=== PATIENT | female | born 1935 | race Caucasian/White ===

== ENCOUNTER 2021-08-23 23:23 | Inpatient (IN) | payer MEDICARE, MEDICAID ==
[~2021-08-23] VITALS: Ht 162.6 cm; Wt 61.7 kg
[~2021-08-23 23:23] MED LIST: FELO2.5T25 PO; LEVOTHYROXINE PO; LOSA50TA41 PO
[2021-08-23] MEDS ORDERED: LABETALOL HCL VIAL 20 MG/4 ML VIAL IV ONE (23:45)
[2021-08-24 00:19] LABS: BASOPHILS % 0.3 % (0.0-2.0); EOSINOPHILS % 0.7 % (0.0-5.0); HEMOGLOBIN. 14.4 g/dL (12.0-16.0); LYMPHOCYTES % 13.1 % (20.0-50.0); MEAN CORPUSCULAR HEMOGLOBIN 30.3 pg (28.0-32.0); MEAN CORPUSCULAR VOLUME 90.1 fL (81.0-99.0); MEAN PLATELET VOLUME 8.5 fl (7.4-10.4); MONOCYTES % 6.7 % (2.0-8.0); NEUTROPHILS % 79.2 % (40.0-76.0); PLATELET 251 x1000/uL (130-400); RED BLOOD CELL COUNT 4.77 mill/uL (4.2-5.4); RED CELL DISTRIBUTION WIDTH 12.8 % (11.6-14.6)
[2021-08-24 00:20] LABS: CHLORIDE 84 mEq/L (98-107)
[2021-08-24 00:37] LABS: ETHANOL BLOOD < 10 mg/dL
[2021-08-24 06:48] LABS: CLARITY URINE CLEAR (CLEAR); COLOR URINE YELLOW (YELLOW); KETONES URINE TRACE (NEGATIVE); LEUKOCYTE ESTERASE URINE TRACE (NEGATIVE); NITRITE URINE POSITIVE (NEGATIVE); OCCULT BLOOD URINE TRACE (NEGATIVE); PH URINE 7.5 (4.5-8.0); PROTEIN URINE NEGATIVE (NEGATIVE); SPECIFIC GRAVITY URINE 1.008 (1.005-1.030)
[2021-08-24] MEDS ORDERED: IPRATROPIUM/ALBUTEROL 0.5-3(2.5)MG/3ML NEB NEB PRN (07:00)
[2021-08-24] MEDS ORDERED: GUAIFENESIN 200MG/10ML SUGAR FREE UDC PO PRN (07:00)
[2021-08-24] MEDS ORDERED: MAGNESIUM/ALUMINUM HYDROXIDE/SIMETHICONE 30ML UDC PO PRN (07:00)
[2021-08-24] MEDS ORDERED: NITROGLYCERIN 0.4MG TABLET SL SL PRN (07:00)
[2021-08-24] MEDS ORDERED: CLONIDINE 0.1MG TABLET PO PRN (07:00)
[2021-08-24] MEDS ORDERED: ACETAMINOPHEN 325MG TABLET PO PRN ×2 (07:00)
[2021-08-24] MEDS ORDERED: KETOROLAC 15MG/ML VIAL IV PRN (07:00)
[2021-08-24] MEDS ORDERED: DOCUSATE SODIUM 100MG CAPSULE PO PRN (07:00)
[2021-08-24] MEDS: SODIUM CHLORIDE 0.9% 1,000 ML IV SCH (07:00)
[2021-08-24] MEDS ORDERED: ONDANSETRON HCL 4MG/2ML INJ IV PRN (07:00)
[2021-08-24] MEDS ORDERED: LEVOFLOXACIN 500MG PREMIX 100 ML IV NR (08:30)
[2021-08-24 09:01] LABS: ETHANOL BLOOD < 10 mg/dL; HDL CHOLESTEROL 72 mg/dL (40-59); LDL CHOLESTEROL 76 mg/dL (5-100); T4 FREE 1.21 ng/dL (0.76-1.46); TOTAL IRON BINDING CAPACITY 499 ug/dL (250-450)
[2021-08-24 09:26] LABS: FOLIC ACID (FOLATE) SERUM >20 ng/mL ng/mL (>5.38); VITAMIN B12 SERUM 130 pg/mL (211-911)
[2021-08-24] MEDS: ASPIRIN 325MG EC TABLET PO SCH (09:52)
[2021-08-24] MEDS: FAMOTIDINE 20MG TABLET PO SCH (09:52)
[2021-08-24] MEDS: ASCORBIC ACID 500 MG TABLET PO SCH ×2 (09:52→21:20)
[2021-08-24] MEDS: ENOXAPARIN 40MG/0.4ML SYR SUBCUT SCH (09:52)
[2021-08-24 11:51] VITALS: BP 166/86
[2021-08-24 12:00] VITALS: BP 166/86
[2021-08-24 12:25] LABS: SODIUM URINE RANDOM 58 mEq/L
[2021-08-24 12:33] LABS: *AMPHETAMINES SCREEN URINE NEGATIVE (NEGATIVE); *BARBITURATES SCREEN URINE NEGATIVE (NEGATIVE); *BENZODIAZEPINES SCREEN URINE NEGATIVE (NEGATIVE); *COCAINE SCREEN URINE NEGATIVE (NEGATIVE); CANNABINOID URINE SCREEN NEGATIVE (NEGATIVE); METHADONE URINE SCREEN NEGATIVE (NEGATIVE); OPIATES URINE SCREEN NEGATIVE (NEGATIVE); PHENCYCLIDINE URINE SCREEN NEGATIVE (NEGATIVE)
[2021-08-24] MEDS: ZINC SULFATE 220 MG ( 50 ) CAPSULE PO SCH (13:26)
[2021-08-24] MEDS: AMLODIPINE 10MG TABLET PO SCH (13:26)
[2021-08-24 16:00] VITALS: BP 139/88
[2021-08-24] MEDS: LEVOTHYROXINE SODIUM 88MCG TABLET PO SCH (17:36)
[2021-08-24 18:45] LABS: CREATINE KINASE MB FRACTION 2.3 ng/mL (0.5-3.6)
[2021-08-24 20:00] VITALS: BP 117/60
[2021-08-24] MEDS ORDERED: ZOLPIDEM TARTRATE 5MG TABLET PO PRN (21:00)
[2021-08-24 23:46] LABS: CREATINE KINASE MB FRACTION 1.7 ng/mL (0.5-3.6)
[2021-08-25] VITALS: BP 118/68
[2021-08-25 04:00] VITALS: BP 135/68
[2021-08-25] MEDS: SODIUM CHLORIDE 0.9% 1,000 ML IV SCH ×2 (05:59→23:18)
[2021-08-25 06:59] LABS: BASOPHILS % 0.4 % (0.0-2.0); EOSINOPHILS % 1.1 % (0.0-5.0); HEMATOCRIT. 39.3 % (36.0-48.0); HEMOGLOBIN. 13.7 g/dL (12.0-16.0); LYMPHOCYTES % 24.1 % (20.0-50.0); MEAN CORPUSCULAR HEMOGLOBIN 31.3 pg (28.0-32.0); MEAN CORPUSCULAR VOLUME 89.9 fL (81.0-99.0); MEAN PLATELET VOLUME 9.1 fl (7.4-10.4); MONOCYTES % 10.1 % (2.0-8.0); NEUTROPHILS % 64.3 % (40.0-76.0); PLATELET 218 x1000/uL (130-400); RED BLOOD CELL COUNT 4.37 mill/uL (4.2-5.4); RED CELL DISTRIBUTION WIDTH 12.8 % (11.6-14.6)
[2021-08-25 08:00] VITALS: BP 116/60
[2021-08-25] MEDS: FAMOTIDINE 20MG TABLET PO SCH (08:46)
[2021-08-25] MEDS: ASPIRIN 325MG EC TABLET PO SCH (08:46)
[2021-08-25] MEDS: ENOXAPARIN 40MG/0.4ML SYR SUBCUT SCH (08:46)
[2021-08-25] MEDS: ZINC SULFATE 220 MG ( 50 ) CAPSULE PO SCH (08:47)
[2021-08-25] MEDS: ASCORBIC ACID 500 MG TABLET PO SCH ×2 (08:47→20:41)
[2021-08-25] MEDS: AMLODIPINE 10MG TABLET PO SCH (08:47)
[2021-08-25] MEDS: LEVOTHYROXINE SODIUM 88MCG TABLET PO SCH (08:48)
[2021-08-25] MEDS ORDERED: LEVOFLOXACIN 250MG PREMIX 50 ML IV SCH (09:00)
[2021-08-25 10:28] LABS: CHLORIDE 95 mEq/L (98-107)
[2021-08-25] MEDS: LEVOFLOXACIN 250MG PREMIX 50 ML IV SCH (11:30)
[2021-08-25 12:00] VITALS: BP 118/62
[2021-08-25 16:00] VITALS: BP 110/61
[2021-08-25 20:00] VITALS: BP 124/64
[2021-08-26] VITALS: BP 137/69
[2021-08-26 04:00] VITALS: BP 135/76
[2021-08-26] MEDS: LEVOTHYROXINE SODIUM 88MCG TABLET PO SCH (06:19)
[2021-08-26 06:38] LABS: CHLORIDE 102 mEq/L (98-107)
[2021-08-26 06:44] LABS: PHOSPHORUS 2.5 mg/dL (2.5-4.9)
[2021-08-26 06:47] LABS: BASOPHILS % 0.8 % (0.0-2.0); EOSINOPHILS % 2.9 % (0.0-5.0); HEMATOCRIT. 40.7 % (36.0-48.0); HEMOGLOBIN. 13.8 g/dL (12.0-16.0); LYMPHOCYTES % 19.1 % (20.0-50.0); MEAN CORPUSCULAR VOLUME 91.3 fL (81.0-99.0); MEAN PLATELET VOLUME 9.7 fl (7.4-10.4); MONOCYTES % 9.1 % (2.0-8.0); NEUTROPHILS % 68.1 % (40.0-76.0); PLATELET 209 x1000/uL (130-400); RED BLOOD CELL COUNT 4.46 mill/uL (4.2-5.4)
[2021-08-26 08:00] VITALS: BP 154/84
[2021-08-26] MEDS: ASCORBIC ACID 500 MG TABLET PO SCH ×2 (09:17→22:39)
[2021-08-26] MEDS: FAMOTIDINE 20MG TABLET PO SCH (09:17)
[2021-08-26] MEDS: ENOXAPARIN 40MG/0.4ML SYR SUBCUT SCH (09:17)
[2021-08-26] MEDS: LEVOFLOXACIN 250MG PREMIX 50 ML IV SCH (09:17)
[2021-08-26] MEDS: ASPIRIN 325MG EC TABLET PO SCH (09:18)
[2021-08-26] MEDS: ZINC SULFATE 220 MG ( 50 ) CAPSULE PO SCH (09:18)
[2021-08-26] MEDS: AMLODIPINE 10MG TABLET PO SCH (09:18)
[2021-08-26 12:00] VITALS: BP 135/67
[2021-08-26 16:00] VITALS: BP 128/79
[2021-08-26] MEDS: SODIUM CHLORIDE 0.9% 1,000 ML IV SCH (16:47)
[2021-08-26] MEDS: CYANOCOBALAMIN 1000MCG/ML VIAL IM SCH (16:47)
[2021-08-26 20:00] VITALS: BP 130/74
[2021-08-27] VITALS: BP 149/78
[2021-08-27 04:00] VITALS: BP 149/67
[2021-08-27 08:00] VITALS: BP 129/78
[2021-08-27] MEDS: CYANOCOBALAMIN 1000MCG/ML VIAL IM SCH (09:45)
[2021-08-27] MEDS: LEVOTHYROXINE SODIUM 88MCG TABLET PO SCH (09:45)
[2021-08-27] MEDS: ENOXAPARIN 40MG/0.4ML SYR SUBCUT SCH (09:45)
[2021-08-27] MEDS: FAMOTIDINE 20MG TABLET PO SCH (09:46)
[2021-08-27] MEDS: AMLODIPINE 10MG TABLET PO SCH (09:46)
[2021-08-27] MEDS: ASCORBIC ACID 500 MG TABLET PO SCH (09:46)
[2021-08-27] MEDS: ZINC SULFATE 220 MG ( 50 ) CAPSULE PO SCH (09:46)
[2021-08-27] MEDS: ASPIRIN 325MG EC TABLET PO SCH (09:46)
[2021-08-27] MEDS ORDERED: LEVOFLOXACIN 250MG TABLET PO SCH (11:00)
[2021-08-27] MEDS ORDERED: LEVO500T90 MT (11:04)
[2021-08-27] MEDS ORDERED: VIT1TABL5 MT (11:04)
[2021-08-27 11:32] VITALS: BP 129/78
[2021-08-27 12:00] VITALS: BP 135/73
== END 2021-08-27 17:00 | disposition home or self-care (01) | DRG 52 ==
LOC: ER 23:23 → 7WST 08-24 03:53 → SUPCPDRO 08-24 06:57 → ENRESERV 08-24 09:45 → 7WST 08-24 18:11
PROVIDERS: ADMIT Internal Medicine; ATTEND Internal Medicine
DX: G92.8 Other toxic encephalopathy (principal); E83.51 Hypocalcemia; E87.8 Other disorders of electrolyte and fluid balance, not elsewhere classified; I11.9 Hypertensive heart disease without heart failure; E87.1 Hypo-osmolality and hyponatremia; N39.0 Urinary tract infection, site not specified; E03.9 Hypothyroidism, unspecified; E11.9 Type 2 diabetes mellitus without complications; B96.20 Unspecified Escherichia coli [E. coli] as the cause of diseases classified elsewhere; I16.1 Hypertensive emergency; I25.10 Atherosclerotic heart disease of native coronary artery without angina pectoris; E53.8 Deficiency of other specified B group vitamins; E05.90 Thyrotoxicosis, unspecified without thyrotoxic crisis or storm; K21.9 Gastro-esophageal reflux disease without esophagitis; Z79.899 Other long term (current) drug therapy
CPT/HCPCS: 36415; 71045; 80053; 80061; 80305; 80320; 81003; 82533; 82550; 82553; 82607; 82746; 83036; 83540; 83550; 83735; 83880; 83930; 83935; 84100; 84145; 84300; 84439; 84443; 84484; 85025; 85379; 87077; 87186; 93005; 93970; 97161; 97162; 97165; 97166; 99291; J1650; J1956; J3420; J3490; G0480